=== PATIENT | female | born 1970 | race Caucasian/White ===

== ENCOUNTER 2017-06-13 23:26 | Emergency (ER) | payer SELFPAY | END 2017-06-13 23:31 | disposition left against medical advice (07) | LOC: ED 23:26 | DX: R07.89 Other chest pain (principal); Z53.21 Procedure and treatment not carried out due to patient leaving prior to being seen by health care provider ==

== ENCOUNTER 2018-06-20 21:51 | Emergency (ER) | payer MEDICARE ==
[2018-06-20 23:03] VITALS: BP 133/87
[2018-06-20] MEDS ORDERED: PEPCID PO ONE (23:39)
[2018-06-20] MEDS ORDERED: BANOPHEN PO ONE (23:39)
--- NOTE | 2018-06-20 23:39 | Emergency Department Report ---
ED General Adult HPI - General Chief complaint: Allergic Reaction Stated complaint: ALLERGIC REACTION Time Seen by Provider: 06/20/18 23:33 Source: patient, RN notes reviewed Mode of arrival: Ambulatory Limitations: No Limitations - History of Present Illness Initial comments: This is a 47-year-old female who is not known to this provider previously. She reports that she is not and she has not delivered given Versed in the past 2 months. She presents to the ER with complaint of resolved sore throat, and diffuse urticarial rash. Patient reports eating shrimp 2 weeks ago, and indicates she knows that she is allergic/intolerant to shrimp. After this, had some episodes of hoarse voice and subjective sensation of throat closing. This is been intermittent, and decreases with epinephrine pen. 36 hours ago, patient felt like her lips were getting swollen, and took an epinephrine pen and Benadryl. She reports that she does not have an indwelling tampon. She currently denies headache, neck pain, chest pain, abdominal pain, shortness of breath, dysphonia. She has an itchy pruritic rash, which is on her right hemithorax, bilateral upper extremities. -: Gradual, week(s) Location: back, abdomen, left, right, upper extremity, lower extremity Radiation: non-radiation Quality: other (itching) Improves with: medication Worsens with: none Associated Symptoms: rash. denies: confusion, chest pain, cough, diaphoresis, fever/chills, headaches, loss of appetite, malaise, nausea/vomiting, seizure, shortness of breath, syncope, weakness - Related Data Previous Rx's Medication Instructions Recorded Last Taken Type EPINEPHrine [Epipen 2-Polo] 0.3 mg IM DAILY PRN #2 ml 06/21/18 Unknown Rx Famotidine [Pepcid] 20 mg PO BID #30 tablet 06/21/18 Unknown Rx diphenhydrAMINE [Benadryl] 50 mg PO Q8HR PRN #20 capsule 06/21/18 Unknown Rx Allergies Allergy/AdvReac Type Severity Reaction Status Date / Time shrimp Allergy Hives Verified 06/20/18 23:02 ED Review of Systems ROS: Stated complaint: ALLERGIC REACTION Other details as noted in HPI Comment: All other systems reviewed and negative ED Past Medical Hx - Past Medical History Previous Medical History?: Yes Hx Hypertension: Yes Hx Heart Attack/AMI: Yes Hx Asthma: Yes Additional medical history: high cholesterol, neuropathy, fibromyalgia, seasonal allergies - Surgical History Past Surgical History?: Yes Additional Surgical History: hernia - Social History Smoking Status: Former Smoker Substance Use Type: None - Medications Home Medications: Home Medications Medication Instructions Recorded Confirmed Last Taken Type EPINEPHrine [Epipen 2-Polo] 0.3 mg IM DAILY PRN #2 ml 06/21/18 Unknown Rx Famotidine [Pepcid] 20 mg PO BID #30 tablet 06/21/18 Unknown Rx diphenhydrAMINE [Benadryl] 50 mg PO Q8HR PRN #20 capsule 06/21/18 Unknown Rx ED Physical Exam - General Limitations: No Limitations General appearance: alert, in no apparent distress - Head Head exam: Present: atraumatic, normocephalic - Eye Eye exam: Present: normal appearance, EOMI. Absent: nystagmus - ENT ENT exam: Present: normal exam, normal orophraynx, mucous membranes moist, normal external ear exam, other (patient is speaking in full sentences. There is no stridor or dysphonia. No obvious swelling to the lips. The uvula is not swollen.) - Neck Neck exam: Present: normal inspection, full ROM. Absent: tenderness, meningismus - Respiratory Respiratory exam: Present: normal lung sounds bilaterally. Absent: respiratory distress - Cardiovascular Cardiovascular Exam: Present: regular rate, normal rhythm, normal heart sounds. Absent: bradycardia, tachycardia, irregular rhythm, systolic murmur, diastolic murmur, rubs, gallop - GI/Abdominal GI/Abdominal exam: Present: soft, normal bowel sounds. Absent: distended, tenderness, guarding, rebound, rigid, pulsatile mass - Extremities Exam Extremities exam: Present: normal inspection, full ROM, normal capillary refill , other (2+ pulses noted in the bilateral upper, lower extremities. Compartments soft. No long bony tenderness. The pelvis is stable.). Absent: tenderness, pedal edema, joint swelling, calf tenderness - Back Exam Back exam: Present: normal inspection, full ROM. Absent: tenderness, CVA tenderness (R), paraspinal tenderness, vertebral tenderness - Neurological Exam Neurological exam: Present: alert, oriented X3, CN II-XII intact, normal gait, other (Extraocular movements intact. Tongue midline. No facial droop. Facial sensation intact to light touch in the V1, V2, V3 distribution bilaterally. 5 and 5 strength in 4 extremities.. Sensation is intact to light touch in 4 extremities.). Absent: motor sensory deficit - Psychiatric Psychiatric exam: Present: normal affect, normal mood - Skin Skin exam: Present: warm, rash, erythema, other (patient has blanching confluent macules on the upper extremities, right hemithorax.) ED Course Vital Signs 06/20/18 22:23 Temperature 98.2 F Pulse Rate 69 Respiratory 14 Rate Blood Pressure 133/87 O2 Sat by Pulse 90 Oximetry ED Medical Decision Making - Lab Data Vital Signs 06/20/18 22:23 Temperature 98.2 F Pulse Rate 69 Respiratory 14 Rate Blood Pressure 133/87 O2 Sat by Pulse 90 Oximetry - Medical Decision Making Differential diagnosis, including not limited to: Urticaria, allergic reaction, Assessment and plan: 47-year-old female with resolving urticaria. The patient is afebrile with reassuring vital signs and is saturating at 97, 98% on my examination. She has no stridor or dysphonia, appears to have a rash that appears to be consistent with urticaria, and is noted to be playing on a cellular phone. The patient reports that she is anaphylactic to prednisone. She will be started on as needed Pepcid, as needed EpiPen, as needed Benadryl, and she is instructed to follow up with an outpatient export specialist. Critical care attestation.: If time is entered above; I have spent that time in minutes in the direct care of this critically ill patient, excluding procedure time. ED Disposition Clinical Impression: Urticaria Disposition: DC-01 TO HOME OR SELFCARE Is pt being admited?: No Does the pt Need Aspirin: No Condition: Good Instructions: Urticaria (ED) Additional Instructions: Take medications as needed/directed. Do not consume shrimp or other foods that patient is allergic to. Follow up with an export specialist within the next 7- 10 days. Return to the ER right away with new pain, worsened pain, migration of pain, rectal vomiting, change in mental status, confusion, inability to speak , inability to breathe. Referrals: PRIMARY CARE, [Primary Care Provider] - 3-5 Days ALFONSO MUNIZ MD [Referring] - 3-5 Days PATRICIA IBARRA MD [Referring] - 3-5 Days
== END 2018-06-21 01:10 | disposition home or self-care (01) ==
LOC: ED 21:51
DX: L50.9 Urticaria, unspecified (principal); I11.0 Hypertensive heart disease with heart failure; J45.909 Unspecified asthma, uncomplicated; E78.00 Pure hypercholesterolemia, unspecified; M79.7 Fibromyalgia; G62.9 Polyneuropathy, unspecified; Z87.891 Personal history of nicotine dependence; Z91.013 Allergy to seafood
CPT/HCPCS: 99282